=== PATIENT | female | born 1945 | race Caucasian/White ===

== ENCOUNTER 2021-08-01 07:30 | Observation (INO) ==
--- NOTE | 2021-06-02 16:03 | PAT Medication Instructions ---
Medication Instructions Date of Service June 02, 2021 Home Medications acetaminophen 500 mg tablet (Acetaminophen Extra Strength) 1,000 mg PO BID allopurinol 300 mg tablet 300 mg PO QAM atorvastatin 20 mg tablet 20 mg PO QAM baclofen 10 mg tablet 10 mg PO BID PRN calcium citrate 250 mg calcium-vitamin D3 5 mcg (200 unit) tablet 2 tab PO QAM calcium citrate 250 mg calcium-vitamin D3 5 mcg (200 unit) tablet 3 tab PO HS colchicine 0.6 mg tablet 1.2 mg PO UD PRN cyanocobalamin (vitamin B-12) 1,000 mcg/mL injection kit 1,000 mcg IM UD insulin glargine 100 unit/mL subcutaneous solution (Lantus U-100 Insulin) 35 unit SUBCUT HS lisinopril 5 mg tablet 5 mg PO QAM metoprolol succinate 25 mg tablet,extended release 24 hr 25 mg PO QAM pediatric prihzrhe-kaot-tnb (Flintstones Complete (iron)) 1 tab PO BID turmeric root extract 500 mg capsule 1,000 mg PO BID warfarin 7.5 mg tablet 3.75 mg PO 4XWK warfarin 7.5 mg tablet 7.5 mg PO 3XWK artificial tears(hypromellose) 0.3 % eye gel (Systane Gel) 1 drp OPHTHALMIC (EYE) HS PRN latanoprost 0.005 % eye drops 1 drp OPHTHALMIC (EYE) HS ASK your prescriber and surgeon warfarin 7.5 mg tablet 3.75 mg PO 4XWK warfarin 7.5 mg tablet 7.5 mg PO 3XWK STOP taking 2 weeks before surgery (or as soon as possible if surgery is within 2 weeks) turmeric root extract 500 mg capsule 1,000 mg PO BID DO NOT take the morning of surgery baclofen 10 mg tablet 10 mg PO BID PRN calcium citrate 250 mg calcium-vitamin D3 5 mcg (200 unit) tablet 2 tab PO QAM colchicine 0.6 mg tablet 1.2 mg PO UD PRN cyanocobalamin (vitamin B-12) 1,000 mcg/mL injection kit 1,000 mcg IM UD lisinopril 5 mg tablet 5 mg PO QAM pediatric wdvuuvai-geia-jrv (Flintstones Complete (iron)) 1 tab PO BID Take morning of surgery With a small sip of water, OTHERWISE NOTHING TO EAT OR DRINK AFTER MIDNIGHT: acetaminophen 500 mg tablet (Acetaminophen Extra Strength) 1,000 mg PO BID (okay to take up to 4 hours prior to surgery if needed) allopurinol 300 mg tablet 300 mg PO QAM atorvastatin 20 mg tablet 20 mg PO QAM metoprolol succinate 25 mg tablet,extended release 24 hr 25 mg PO QAM Take evening before surgery acetaminophen 500 mg tablet (Acetaminophen Extra Strength) 1,000 mg PO BID baclofen 10 mg tablet 10 mg PO BID PRN (if needed) calcium citrate 250 mg calcium-vitamin D3 5 mcg (200 unit) tablet 3 tab PO HS colchicine 0.6 mg tablet 1.2 mg PO UD PRN (if needed) insulin glargine 100 unit/mL subcutaneous solution (Lantus U-100 Insulin) 35 unit SUBCUT HS pediatric uwrkbqvm-vjru-dxo (Flintstones Complete (iron)) 1 tab PO BID artificial tears(hypromellose) 0.3 % eye gel (Systane Gel) 1 drp OPHTHALMIC (EYE) HS PRN (if needed) latanoprost 0.005 % eye drops 1 drp OPHTHALMIC (EYE) HS Other Notes If you have any questions please call us at [phone] or [phone] or [phone] or [phone]
--- NOTE | 2021-06-04 11:24 | Anesthesiology Consultation ---
Date of Service June 04, 2021 Assessment & Plan (1) Encounter for pre-operative examination: Chart Review Chart Review: Acceptable Risk for Surgery (pending preop Covid testing results ) and Patient seen in Pre Admission Testing Pt on Coumadin- requiring bridging prior to surgery- allergy to Lovenox. Pt is being put on Arixtra- last dose of Coumadin will be 06/15/21- start Arixtra 06/17/21- last dose 06/18/21. Will restart Arixtra 06/21/21 post op. Due to Arixtra being held for <96 hours prior to surgery - patient will need general anesthesia . - Check coags AM DOS - Check BSG AM DOS Per PAT appt on 06/04/21, patient denies any recent travel or large group activities. No known Covid positive contacts or Covid related symptoms. No known Covid infection in the past 90 days. Pt is vaccinated for Covid.. Preop Covid testing scheduled 06/18/21= will await results. Educated on importance of self quarantining, social distancing and wearing mask in public for the patient one week prior to surgery and after Covid testing done Last see by cardio 01/02/21= patient seen for follow-up on per minute atrial fib rillation. Doing well from cardiac standpoint. Patient having trouble ambulating due to knee painseeing orthopedic surgery for possible total knee replacement. From a cardiac standpoint she is doing very well and no further cardiac testing or intervention is necessary at this time. Patient on good medication regiment. "In terms of preop risk assessment she was counseled that I would place her as a moderate risk for any adverse perioperative cardiovascular risk with her risk being approximately less than 5%. She is further counseled that no further cardiac testing or intervention would further lower that risk. She states she understands, she is accepting of the risks and she wishes to proceed. So I see no need to delay from a cardiac standpoint. Obviously her anticoagulation will be managed by [facility]." History Surgery Operation Date: 06/20/21 11:30 Proposed Procedures p Left Total Knee Arthroplasty - Eliseo Lora, DO Height/Weight Height: 5 ft 6 in Weight: 134.1 kg Allergies Allergy/AdvReac Type Severity Reaction Status Date / Time enoxaparin [From Lovenox] Allergy Intermediate Hives Verified 06/02/21 15:32 strawberry AdvReac Mild HIVES WITH Verified 06/02/21 15:32 TOO MANY AT ONE TIME aspirin AdvReac Unknown Gastrointestinal Verified 06/02/21 15:32 Upset NSAIDS (Non-Steroidal AdvReac Unknown GI UPSET Verified 06/02/21 15:32 Anti-Inflamma Medications Home Medications Medication Instructions Recorded Confirmed Last Taken acetaminophen 500 mg tablet 1,000 mg PO BID 09/07/18 06/02/21 09/26/18 (Acetaminophen Extra Strength) allopurinol 300 mg tablet 300 mg PO QAM 09/07/18 06/02/21 09/27/18 atorvastatin 20 mg tablet 20 mg PO QAM 09/07/18 06/02/21 09/27/18 baclofen 10 mg tablet 10 mg PO BID PRN 09/07/18 06/02/21 09/21/18 calcium citrate 250 mg 2 tab PO QAM 09/07/18 06/02/21 09/26/18 calcium-vitamin D3 5 mcg (200 unit) tablet calcium citrate 250 mg 3 tab PO HS 09/07/18 06/02/21 09/26/18 calcium-vitamin D3 5 mcg (200 unit) tablet colchicine 0.6 mg tablet 1.2 mg PO UD PRN 09/07/18 06/02/21 Unknown cyanocobalamin (vitamin B-12) 1,000 mcg IM UD 09/07/18 06/02/21 Unknown 1,000 mcg/mL injection kit insulin glargine 100 unit/mL 35 unit SUBCUT HS 09/07/18 06/02/21 09/26/18 subcutaneous solution (Lantus U-100 Insulin) lisinopril 5 mg tablet 5 mg PO QAM 09/07/18 06/02/21 09/27/18 metoprolol succinate 25 mg 25 mg PO QAM 09/07/18 06/02/21 09/27/18 tablet,extended release 24 hr pediatric cujqnkko-htxt-nvw 1 tab PO BID 09/07/18 06/02/21 09/26/18 (Flintstones Complete (iron)) turmeric root extract 500 mg 1,000 mg PO BID 09/07/18 06/02/21 09/26/18 capsule warfarin 7.5 mg tablet 3.75 mg PO 4XWK 09/07/18 06/02/21 09/26/18 warfarin 7.5 mg tablet 7.5 mg PO 3XWK 09/07/18 06/02/21 09/26/18 artificial tears(hypromellose) 0.3 1 drp OPHTHALMIC (EYE) HS PRN 06/02/21 06/02/21 Unknown % eye gel (Systane Gel) latanoprost 0.005 % eye drops 1 drp OPHTHALMIC (EYE) HS 06/02/21 06/02/21 Unknown Past Medical History Medical History (Updated 06/04/21 @ 15:27 by Jessica Paniagua PA-C) Abdominal hernia Size stable- pain controlled Atrial fibrillation 2016 during the stroke. No problems since. On Coumadin Deep vein thrombosis (~2003) "saddle block" r/t HRT- On Coumadin Degenerative disc disease Diabetes mellitus, type 2 IDDM Glucose uncontrolled in the past - insulin has been adjusted- glucose improving Dyslipidemia GERD (gastroesophageal reflux disease) Small hiatal hernia- minimal symptoms Gout No recent issues Hypertension Migraine Monoclonal gammopathy Follows heme with annually - under observation- stable Osteoarthritis Pulmonary embolism (~2003) "Saddle PE" - on Coumadin SCC (squamous cell carcinoma) S/p removed on right LE Stroke 2016--effected speech, no real deficits now Exercise / Class Metabolic Activity III < 4 Walking/Shop/Light housework (no chest pain or SOB with flat surface, s hort distanced ambulation - uses cane to ambulate- especially in public ) Past Family History Family History Mother Family history of diabetes mellitus Father Family history of diabetes mellitus Brother Family history of diabetes mellitus Sister Family history of diabetes mellitus Other No family history of adverse response to anesthesia Past Surgical History Surgical History History of carpal tunnel release left & right History of cataract surgery bilateral History of colonoscopy History of dilatation and curettage History of Disha-en-Y gastric bypass History of tooth extraction wisdom tooth History of total abdominal hysterectomy and bilateral salpingo-oophorectomy (~1989) History of total right knee replacement (TKR) History of YAG laser capsulotomy of lens of left eye History of YAG laser capsulotomy of lens of right eye Past Anesthesia History No Hx of Anesthesia Complications (with exception to right TKA - SAB took longer to wear off ) and No Family Hx of Anesthesia Complications History of PONV No Hx of PONV and No Hx of Motion Sickness Social History Smoking Status: Never smoker Do You Dip or Chew Tobacco: No Hx Alcohol Use: Yes Alcohol type: wine alcohol intake frequency: holidays/special occasions only Hx Substance Use: No substance use type: does not use Review of Systems Patient denies chest pain, shortness of breath, dyspnea on exertion, cough, wheezing, palpitations. No hx of seizures, MS, apnea/snoring. No hx of blood transfusions Physical Exam Vital Signs VITALS BP 169/82 (usually in 130s systolically per patient) P 79 TEMP 98.2 SP02 98% RESP 16 Constitutional no acute distress ENMT Mouth: no TMJ clicking Thyromental Distance: < 3.5 Finger Breadths (3.0) Mallampati Class: I Caps to molars Neck + limited neck extension (mild ) Respiratory normal respiratory effort; no respiratory distress Auscultation: lungs clear to auscultation bilaterally; no wheezes Cardiovascular Heart Sounds: no murmur Vessels: no carotid bruit Irregularly irregular Musculoskeletal Spine: no pain with cervical ROM Extremities: extremities normal to inspection Psychiatric Orientation: alert Lab Results Anesthesia Preop Results Results Anesthesia Widget: WBC 5.13 K/uL (4.8-10.8) 06/04/21 Hgb 13.7 g/dL (12.0-16.0) 06/04/21 Hct 42.1 % (37-47) 06/04/21 Plt 243 K/uL (130-400) 06/04/21 Na 140 mmol/L (136-145) 06/04/21 K 3.9 mmol/L (3.5-5.1) 06/04/21 Cl 105 mmol/L (98-107) 06/04/21 CO2 28 mmol/L (21-32) 06/04/21 BUN 22 mg/dl (7-18) H 06/04/21 Creat 1.04 mg/dl (0.6-1.2) 06/04/21 Glucose Level 141 mg/dl (70-99) H 06/04/21 PT 15.6 Seconds (9.0-12.0) H 06/04/21 PTT 32.8 Seconds (21.0-31.0) H 06/04/21 INR 1.6 (0.9-1.1) H 06/04/21 HA1c 7.1 % (4.5-5.6) H 06/04/21 Blood Type B Positive 06/04/21 Antibody Screen NEGATIVE 06/04/21 Testing Electrocardiogram Date: 06/04/21 Findings: + AFIB @ (66bpm) and + no change from (April 17, 2016 per cardio ) Chest X-Ray Date: 06/04/21 Findings: + NAD Echocardiogram Date: 01/30/19 EF: 55-59% LV Function: normal Other Findings: + diastolic dysfunction (Grade III ); no LVH LV cavity size is normal. LV wall thickness is normal. Left and right atrium mildly enlarged. RV systolic function is normal. Mild MR. Mild TR.
--- NOTE | 2021-07-31 11:45 | History & Physical Report ---
Date of Service July 31, 2021 Assessment & Plan (1) Osteoarthritis of left knee: We will proceed with a left total knee arthroplasty. Postoperatively she will be started on heparin and Coumadin for DVT prophylaxis. She will be kept overnight in the hospital for postoperative medical management. She plans to use energy physical therapy upon discharge. History of Present Illness Chief Complaint: Osteoarthritis of the left knee. Primary Care Provider: Etta Miller DO Chen is a pleasant 76-year-old female who had a right total knee arthroplasty done by Dr. Roach in 2009. She is done well with that. Unfortunate she has been doing with chronic worsening left knee pain. X-rays and clinical examination been diagnostic for advanced osteoarthritis of the left knee. After failing years of conservative treatment, she has elected proceed with a left total knee arthroplasty. Allergies Allergy/AdvReac Type Severity Reaction Status Date / Time enoxaparin [From Lovenox] Allergy Intermediate Hives Verified 07/30/21 06:37 strawberry AdvReac Mild HIVES WITH Verified 07/30/21 06:37 TOO MANY AT ONE TIME aspirin AdvReac Unknown Gastrointestinal Verified 07/30/21 06:37 Upset NSAIDS (Non-Steroidal AdvReac Unknown GI UPSET Verified 07/30/21 06:37 Anti-Inflamma Home Medications Medication Instructions Recorded Confirmed Type acetaminophen 500 mg tablet 1,000 mg PO BID 09/07/18 07/30/21 History (Acetaminophen Extra Strength) allopurinol 300 mg tablet 300 mg PO QAM 09/07/18 07/30/21 History atorvastatin 20 mg tablet 20 mg PO QAM 09/07/18 07/30/21 History baclofen 10 mg tablet 10 mg PO BID PRN 09/07/18 07/30/21 History calcium citrate 250 mg 2 tab PO QAM 09/07/18 07/30/21 History calcium-vitamin D3 5 mcg (200 unit) tablet calcium citrate 250 mg 3 tab PO HS 09/07/18 07/30/21 History calcium-vitamin D3 5 mcg (200 unit) tablet colchicine 0.6 mg tablet 1.2 mg PO UD PRN 09/07/18 07/30/21 History cyanocobalamin (vitamin B-12) 1,000 mcg IM UD 09/07/18 07/30/21 History 1,000 mcg/mL injection kit insulin glargine 100 unit/mL 35 unit SUBCUT HS 09/07/18 07/30/21 History subcutaneous solution (Lantus U-100 Insulin) lisinopril 5 mg tablet 5 mg PO QAM 09/07/18 07/30/21 History metoprolol succinate 25 mg 25 mg PO QAM 09/07/18 07/30/21 History tablet,extended release 24 hr pediatric tlbfnqut-ffor-pxr 1 tab PO BID 09/07/18 07/30/21 History (Flintstones Complete (iron)) turmeric root extract 500 mg 1,000 mg PO BID 09/07/18 07/30/21 History capsule warfarin 7.5 mg tablet 3.75 mg PO 4XWK 09/07/18 07/30/21 History warfarin 7.5 mg tablet 7.5 mg PO 3XWK 09/07/18 07/30/21 History artificial tears(hypromellose) 0.3 1 drp OPHTHALMIC (EYE) HS PRN 06/02/21 07/30/21 History % eye gel (Systane Gel) latanoprost 0.005 % eye drops 1 drp OPHTHALMIC (EYE) HS 06/02/21 07/30/21 History Past Med/Surg History Medical History Abdominal hernia Size stable- pain controlled Atrial fibrillation 2016 during the stroke. No problems since. On Coumadin Deep vein thrombosis (~2003) "saddle block" r/t HRT- On Coumadin Degenerative disc disease Diabetes mellitus, type 2 IDDM Glucose uncontrolled in the past - insulin has been adjusted- glucose improving Dyslipidemia GERD (gastroesophageal reflux disease) Small hiatal hernia- minimal symptoms Gout No recent issues Hypertension Migraine Monoclonal gammopathy Follows heme with annually - under observation- stable Osteoarthritis Pulmonary embolism (~2003) "Saddle PE" - on Coumadin SCC (squamous cell carcinoma) S/p removed on right LE Stroke 2016--effected speech, no real deficits now Surgical History History of carpal tunnel release left & right History of cataract surgery bilateral History of colonoscopy History of dilatation and curettage History of Disha-en-Y gastric bypass History of tooth extraction wisdom tooth History of total abdominal hysterectomy and bilateral salpingo-oophorectomy (~1989) History of total right knee replacement (TKR) History of YAG laser capsulotomy of lens of left eye History of YAG laser capsulotomy of lens of right eye Family History Mother Family history of diabetes mellitus Father Family history of diabetes mellitus Brother Family history of diabetes mellitus Sister Family history of diabetes mellitus Other No family history of adverse response to anesthesia Social History Smoking Status: Never smoker Second Hand Exposure: No; Hx Alcohol Use: Yes Alcohol type: wine Hx Substance Use: No Preferred Language: B[place]ud[place] Communication Ability: Effective Signals Analyst Required: No Beliefs That Will Affect Care: None Current Living Situation: Alone Feels Safe at Home: Yes Assistive Devices: Cane and Glasses Review of Systems All systems reviewed & are unremarkable except as noted in HPI & below. Physical Exam On physical examination the left knee, she has range of motion from 0 to 115 degrees. She has no instability. She has pain of the distal medial and lateral femoral condyles. She has crepitus with range of motion. Constitutional WD/WN, vitals as above Eyes PERRL, conjunctivae normal, anicteric sclerae ENMT external ear and nose normal, oropharynx normal Neck trachea midline, no thyromegaly Respiratory normal respiratory effort Cardiovascular RRR, no murmur, no edema Gastrointestinal (Abdomen) normal bowel sounds, soft, nontender, no hepatosplenomegaly Psychiatric A+Ox3, euthymic affect Results & Data Results & Data Laboratory Results . Diagnostic Findings X-rays of the left knee show advanced osteoarthritis with joint space narrowing, osteophyte formation, and mdge-ge-ypyu articulation. PG Care Time/CCT Total # of Minutes Spent Total Time Spent with Patient: Total time spent is greater than 50% in coordination of care (as documented) at patient's floor/unit and/or counseling patient: Coding Level of Care Code None Diagnoses Osteoarthritis of left knee M17.12
[~2021-08-01 07:30] MED LIST: ACETAMINOPHEN 500 MG TAB PO SCH; BUPIVACAINE 0.25% 30 ML VIAL ONE; BUPIVACAINE 0.5 % 5 MG/1 ML PF 10ML VIAL ONE; FAMOTIDINE 20 MG TAB PO SCH; GABAPENTIN 300 MG CAP PO SCH; LR 15ML/HR IV SCH; LR 60ML/HR IV SCH; ROPIVACAINE 0.5% HCL/PF 150 MG, BUPIVACAINE 0.75% MPF 20 ML, EPINEPHrine 30MG/30ML (OR ... INSTIL SCH; TRANEXAMIC ACID / 0.7% NACL 1,000 MG/100 ML BAG IV SCH; TRANEXAMIC ACID 1,000 MG **IV Intra-op IV SCH; TRANEXAMIC ACID 1,000 MG **IV Pre-op IV SCH; ceFAZolin 2000MG 2,000 MG/15 ML SYR IV SCH; dexAMETHasone 4 MG TAB PO SCH
[2021-08-01 09:09] LABS: INR 1.2 (0.9-1.1); Partial Thromboplastin Ratio 1.2; Partial Thromboplastin Time 30.3 Seconds (21.0-31.0); Prothrombin Time 12.1 Seconds (9.0-12.0)
--- NOTE | 2021-08-01 09:30 | History & Physical Bridge Note ---
Date of Service August 01, 2021 History & Physical Bridge Note I have examined the patient, reviewed the History & Physical and in the interval since the performance of the History & Physical I have noted the following changes of clinical significance: no changes noted
[2021-08-01] MEDS ORDERED: ONDANSETRON INJ 2 MG/ML 2 ML VIAL IV PRN ×2 (09:55→15:20)
[2021-08-01] MEDS ORDERED: ATROPINE SULFATE 0.1 MG/ML 10ML SYR IV PRN (09:55)
[2021-08-01] MEDS ORDERED: ePHEDrine sulfate 50 MG/ML AMP IV PRN (09:55)
[2021-08-01] MEDS ORDERED: ONDANSETRON INJ 2 MG/ML 2 ML VIAL ONE ×2 (09:57→12:06)
[2021-08-01] MEDS ORDERED: LIDOCAINE 2% 2 ML VIAL/AMP(20MG/ML) INFIL ONE (09:57)
[2021-08-01] MEDS ORDERED: KETAMINE 50 MG/5 ML SYRINGE ONE (09:57)
[2021-08-01] MEDS ORDERED: MIDAZOLAM HCL 1 MG/ML 2ML VIAL ONE (09:57)
[2021-08-01] MEDS ORDERED: PROPOFOL IV EMULSION 10 MG/ML 20 ML VIAL IV ONE (09:57)
[2021-08-01] MEDS ORDERED: ORTHO JOINT ANESTHETIC ONE (10:06)
[2021-08-01] MEDS ORDERED: ROCURONIUM BROMIDE 10 MG/ML 5 ML VIAL IV ONE (10:07)
[2021-08-01] MEDS ORDERED: fentaNYL citrate 100 MCG/2 ML VIAL ONE ×2 (10:07→10:54)
[2021-08-01] MEDS ORDERED: GLYCOPYRROLATE 0.2 MG/ML VIAL ONE (10:07)
[2021-08-01] MEDS ORDERED: NEOSTIGMINE METHYLSULFATE 1 MG/ML 10ML VIAL ONE (10:07)
[2021-08-01] MEDS ORDERED: HYDROmorphone INJ 1 MG/ML SYRINGE IV PRN (10:38)
--- NOTE | 2021-08-01 11:53 | Operative Report ---
PG Post Operative Report Pre & Post Diagnosis Operation Date: 06/20/21 12:25 <No data on this case meets the specified criteria> Operation Date: 08/01/21 10:10 Pre-Op Diagnosis: Degenerative Joint Disease Knee Left Post-Op Diagnosis: Degenerative Joint Disease Knee Left I identified the patient and participated in the time-out.: Yes Procedure Operation Date: 06/20/21 12:25 <No data on this case meets the specified criteria> Operation Date: 08/01/21 10:10 Actual Procedures p Left Total Knee Arthroplasty- Cemented(Left) - Eliseo Lora DO Surgeon Eliseo Lora DO Watch Caser Eliseo Mckee PAC Estimated Blood Loss 20 Findings Consistent with Post-Op Diagnosis Specimens Left femoral and tibial bone Complications none Disposition Disposition: Recovery Room Indications Chen is a pleasant 76-year-old female has been doing with chronic increasing left knee pain. X-rays and clinical examination have been diagnostic for advanced osteoarthritis of the left knee. After failing conservative treatment, she is elected proceed with a left total knee arthroplasty. Description of Procedure Implants used: I used a Abilio Persona total knee arthroplasty system with a size nine PS femur, E tibia with a 30 mm extension stem, 31 oval patella, and a size 12 CPS polyethylene bearing. All components were cemented in place with Biomet cement. Chen arrived [facility] for the above procedure. She was seen in the preoperative holding area and the operative extremity was identified and signed. She was given a preoperative antibiotic, TXA, a spinal anesthetic and an adductor nerve block. She was taken back to the operating room and laid on the table in supine position. She was given basic sedation. The operative knee was then prepped and draped in sterile fashion. A timeout was done, and the patient and the operative extremity was properly identified. A midline incision was made directly over the patella. Dissection was taken down to the extensor mechanism. A subvastus arthrotomy was used. The medial retinaculum was released and the fat pad was mostly excised. The knee was flexed and the ACL, PCL, and meniscus were removed. A drill was sent down the center of the femoral canal followed by an intramedullary fabio. Off that fabio a distal femoral cutting block was placed. 9 mm was resected off the distal femur at 5 of valgus. A posterior referencing AP sizing guide was then placed on the distal femur. The femur measured to be a size nine. 2 drill holes were placed in 3 of external rotation. A 4-in-1 cutting block was then impacted into place. Anterior, posterior, and chamfer cuts were then made. The proximal tibia was then exposed. An external tibial alignment guide was placed. A tibial cut guide was then anchored in place and the proximal tibia was then resected. The posterior aspect of the knee was then opened up and any additional meniscus fragments and osteophytes were removed. The tibia measured to be a size E. The tibial plate was then placed in the appropriate rotation and the tibia was drilled and punched. Trial components were then placed. I used a size 12 CPS polyethylene insert. The knee was brought through a full range of motion and felt to be stable. The peg holes for the femoral component were then drilled. The patella was then everted and 9 mm was resected off the posterior aspect of the patella. The patella measured to be a size 31 oval 3 peg holes were then drilled. A trial patella was placed. The knee was once again brought through a full range of motion and felt to be stable. Trial components were then removed. The surrounding soft tissues were injected with 100 cc of an orthopedic pain control cocktail. All components were then cemented into place with Biomet cement. The final polyethylene insert was then snapped into place. Once cement was dry the tourniquet was deflated. Hemostasis was obtained. A dilute betadyne lavage was then done for 3 minutes. The joint was then irrigated with normal saline solution. The subvastus arthrotomy was then closed with #1 Vicryl suture. The skin was closed with 2-0 Vicryl, 3-0V lock suture, and qing. A soft compressive dressing was placed. She was then transferred to a hospital bed and taken to the postanesthesia care unit in stable condition. She tolerated the procedure well. Eliseo Mckee PA-C, was present for the entire procedure. He was critical for patient positioning, prepping, draping, retraction exposure, wound closure and application of sterile dressing. I attest to the content of the Intraoperative Record and any orders documented therein. Any exceptions are noted below.
[2021-08-01] MEDS ORDERED: LR 15ML/HR IV SCH (12:00)
[2021-08-01] MEDS ORDERED: LABETALOL HCL IV 5 MG/ML 20ML IV ONE (12:06)
[2021-08-01] MEDS: fentaNYL citrate 100 MCG/2 ML VIAL IV PRN ×2 (12:40→12:45)
--- NOTE | 2021-08-01 13:04 | XRay Report ---
XR knee LT 1 or 2V routine CLINICAL HISTORY: Surgical Post Op TECHNIQUE: 3 views of the right knee were obtained. Comparison: None available at the time of this dictation. FINDINGS: Patient is status post total knee arthroplasty with expected postsurgical changes including soft tiss ue swelling, subcutaneous emphysema, and surgical stable placement. No periarticular lucency or hardw are fracture is seen. The alignment is anatomic. No soft tissue abnormality is seen. IMPRESSION: Expected postoperative appearance status post placement of total knee arthroplasty. ACT 112: Negative or not required by law. Electronically signed by: Narayan Rojo M.D. 08/01/2021 1:03 PM
--- NOTE | 2021-08-01 13:57 | Anesthesiology Progress Note ---
Date of Service August 01, 2021 Anesthesia Post Procedure Vital Signs Vital Signs: Temp Pulse Pulse Resp BP Pulse Ox 08/01/21 13:30 80 15 134/92 98 08/01/21 13:15 36 C L 72 17 136/79 100 08/01/21 13:00 76 17 146/85 H 99 08/01/21 12:50 83 13 131/72 97 08/01/21 12:40 75 13 107/77 96 08/01/21 12:30 75 23 128/70 95 08/01/21 12:20 36.7 C 93 H 15 143/74 H 96 08/01/21 09:15 36.7 C 77 18 183/107 H 08/01/21 08:09 36.9 C 100 H 20 192/108 H 95 Pain Intensity Left Knee: Pain Intensity: 3 Transfer of Care Handoff Completed per policy Notes Mental Status: alert / awake / arousable and participated in evaluation Patient Amnestic to Procedure: Yes Nausea / Vomiting: adequately controlled Pain: adequately controlled Airway Patency, RR, SpO2: stable & adequate BP & HR: stable & adequate Hydration State: stable & adequate Anesthetic Complications: no major complications apparent and Pt Satisfied with anesthetic care
[2021-08-01] MEDS ORDERED: bisacodyL 10 MG SUPP PR PRN (15:20)
[2021-08-01] MEDS ORDERED: NALOXONE HCL 0.4 MG/1 ML VIAL/CARP IV PRN (15:20)
[2021-08-01] MEDS ORDERED: COLCHICINE 0.6 MG TAB PO PRN (15:20)
[2021-08-01] MEDS ORDERED: ARTIFICIAL TEARS OP PRN (15:20)
[2021-08-01] MEDS ORDERED: MAGNESIUM HYDROXIDE SUSP 30 ML UDC PO PRN (15:20)
[2021-08-01] MEDS ORDERED: HYDROmorphone INJ 0.5 MG/0.5 ML SYR IV PRN (15:20)
[2021-08-01] MEDS ORDERED: PHARMACY GLYCEMIC MGMT CONSULT PRN (15:20)
[2021-08-01] MEDS ORDERED: METOCLOPRAMIDE HCL INJ 5 MG/ML 2 ML VIAL IV PRN (15:20)
[2021-08-01] MEDS ORDERED: ORTHO WARFARIN NOMOGRAM SCH (15:30)
[2021-08-01] MEDS: KETOROLAC TROMETHAMINE 15 MG/ML VIAL IV SCH ×2 (16:03→20:59)
[2021-08-01] MEDS: SODIUM CHLORIDE 0.9% 1000ML 1,000 ML IV SCH (16:10)
[2021-08-01] MEDS: ACETAMINOPHEN 500 MG TAB PO SCH (16:11)
[2021-08-01] MEDS ORDERED: WARFARIN SOD 7.5 MG TAB PO ONE (16:30)
[2021-08-01] MEDS: INSULIN ASPART 100 UNITS/ML 3 ML PEN SC SCH ×2 (17:06→21:00)
[2021-08-01] MEDS: ceFAZolin 2000MG 2,000 MG/15 ML SYR IV SCH (18:10)
[2021-08-01] MEDS: DOCUSATE SODIUM 100 MG CAP PO SCH (20:59)
[2021-08-01] MEDS ORDERED: SENNA 8.6 MG TAB PO SCH (21:00)
[2021-08-01] MEDS ORDERED: INSULIN GLARGINE SOLOSTAR 100 UNITS/ML 3 ML PEN SC SCH ×2 (21:00)
[2021-08-01] MEDS: oxyCODONE HCL IR 5 MG TAB (IMMEDIATE RELEASE) PO PRN (21:19)
[2021-08-02] MEDS: KETOROLAC TROMETHAMINE 15 MG/ML VIAL IV SCH ×2 (02:07→08:48)
[2021-08-02] MEDS: ceFAZolin 2000MG 2,000 MG/15 ML SYR IV SCH (02:07)
[2021-08-02] MEDS: ACETAMINOPHEN 500 MG TAB PO SCH ×2 (02:09→08:40)
[2021-08-02] MEDS: SODIUM CHLORIDE 0.9% 1000ML 1,000 ML IV SCH (02:16)
[2021-08-02 06:30] LABS: Hematocrit (blood only) 36.5 % (37-47); Mean Corpuscular Hemoglobin 31.1 pg (25-34); Mean Corpuscular Hgb Conc 32.9 g/dL (32-36); Mean Corpuscular Volume 94.6 fL (80-100); Mean Platelet Volume 10.1 fL (7.4-10.4); Platelet Count 225 K/uL (130-400); RDW Coefficient of Variation 13.4 % (11.5-14.5); RDW Standard Deviation 46.2 fL (36.4-46.3); Red Blood Count 3.86 M/uL (4.2-5.4); White Blood Count 15.05 K/uL (4.8-10.8)
[2021-08-02 06:39] LABS: INR 1.2 (0.9-1.1); Prothrombin Time 11.9 Seconds (9.0-12.0)
[2021-08-02 07:02] LABS: BUN Creatinine Ratio 16.2 (10-20); Calcium 9.1 mg/dl (8.5-10.1); Creatinine Clr Calc Pharmacy 41.7 ml/min; Est GFR (African American) 35.6 ml/min; Est GFR (Non-African American) 30.7 ml/min; Potassium 4.3 mmol/L (3.5-5.1)
--- NOTE | 2021-08-02 07:33 | Orthopedic Progress Note ---
Date of Service August 02, 2021 Assessment & Plan (1) Status post left knee replacement: Overall she is doing very well. She denies any much pain in the left knee. She will be seen by physical therapy today for ambulation and range of motion exercises. Her dressing can be changed after physical therapy. She can be discharged home later today. She can start her Arixtra later tonight. She will continue on the Coumadin. She will then follow-up with orthopedics in 2 weeks. Quan Siddiqui was seen and examined at bedside this morning. Overall she is doing very well. She is not having much pain in the left knee. She has been up and ambulating to the bathroom. She has no complaints. Review of Systems All systems reviewed & are unremarkable except as noted in HPI & below. Physical Exam On physical examination of the left knee, the dressing is clean and dry. Her leg is out in full extension. She has active dorsiflexion plantarflexion of her left ankle. She is able to do a straight leg raise. Results & Data Results & Data Laboratory Results . Diagnostic Findings Postoperative x-rays of the left knee show the prosthesis to be in anatomic alignment without any evidence of fracture, desiccation, or loosening. PG Care Time/CCT Total # of Minutes Spent Total Time Spent with Patient: Total time spent is greater than 50% in coordination of care (as documented) at patient's floor/unit and/or counseling patient: Coding Level of Care Code 16110 Post Operative Follow-Up Diagnoses Status post left knee replacement Z96.652
--- NOTE | 2021-08-02 07:35 | Discharge Summary ---
Date of Service August 02, 2021 Admission HPI (Per Admitting) Chen is a pleasant 76-year-old female who had a right total knee arthroplasty done by Dr. Roach in 2009. She is done well with that. Unfortunate she has been doing with chronic worsening left knee pain. X-rays and clinical examination been diagnostic for advanced osteoarthritis of the left knee. After failing years of conservative treatment, she has elected proceed with a left total knee arthroplasty. Admission Exam (Per Admitting) On physical examination the left knee, she has range of motion from 0 to 115 degrees. She has no instability. She has pain of the distal medial and lateral femoral condyles. She has crepitus with range of motion. Principal Diagnosis Same as "Discharge Diagnosis" noted below under Discharge Instructions. Discharge Exam On physical examination of the left knee, the dressing is clean and dry. Her leg is out in full extension. She has active dorsiflexion plantarflexion of her left ankle. She is able to do a straight leg raise. Discharge Data Procedures Performed Operation Date: 06/20/21 12:25 <No data on this case meets the specified criteria> Operation Date: 08/01/21 10:10 Actual Procedures p Left Total Knee Arthroplasty- Cemented(Left) - Eliseo Lora DO Ordered Studies 06/20/21 05:00 US - OR guided needle placemen Routine 08/01/21 05:00 US - OR guided needle placemen Routine Hospital Course (1) Status post left knee replacement: On August 01, 2021 Chen arrived at [facility] and underwent a left knee replacement without complication. She had a general anesthetic. Postoperatively she was started on Coumadin and Arixtra for DVT prophylaxis and transferred to the general orthopedic floors. Her hospital course was uneventful. On postop day #1 her vital signs were stable and her pain was well controlled. She was able to participate well with physical therapy doing ambulation and range of motion exercises. She was then discharged to home. She will follow-up with orthopedics in 2 weeks. PG Care Time/CCT Total # of Minutes Spent Total Time Spent with Patient: Total time spent is greater than 50% in coordination of care (as documented) at patient's floor/unit and/or counseling patient: Discharge Plan Discharge Items Patient Disposition: Home - Home Health Services Reason For Visit: Degenerative Joint Disease Knee Left Discharge Diagnosis: Left knee replacement Activity: As commented below Non-emergency contact: Surgeon Call non-emergency contact if: your wound has increased redness and your wound has increased drainage Follow-up/Referrals: Etta Miller, [Primary Care Provider] - Diet: Regular Addtl Attending Provider Instructions: Activity and Therapy Recommendations: * If you are using [facility] then therapy will be provided at your home until they feel you have accomplished all of your goals. * If you are using [facility] then Physical Therapy will be provided until they feel you are ready to start Outpatient Physical Therapy. * If you are not using home therapy then Outpatient Physical Therapy should start about 3-5 days from your day of surgery. Therapy will last about 6-10 weeks * It is important not to put a pillow under your knee when you are relaxing or sleeping. It is just as important to make sure you are getting your knee perf ectly straight as it is to regain your knee bend. * You were shown a series of exercises in the hospital. Do these exercises three times each day including the exercises you were shown in physical therapy. * Get up and walk several times each day. For the first four weeks, try not to stand or walk for more than one hour at a time. If you do stand or walk for more than one hour, you will not hurt anything, but your leg will likely swell. * As you feel comfortable, you may change from the walker or crutches to a cane and then to independent walking. Medications: * Narcotic You will likely be sent home from the hospital with a prescription for the narcotic pain medication that worked best throughout your stay. * Aspirin Most patients will be required to take Aspirin 81mg twice a day for 6 weeks after surgery. This is obtained [id number] and a prescription is not necessary. * Other medications may be prescribed for specific circumstances. If you have a ny questions, please call the office at . * Resume previous home medications unless otherwise instructed TEDs/Elastic Stockings: The white elastic stockings help limit swelling and prevent blood clots from forming in your legs.~ The more you wear them, the more they work. Wear them for six weeks. Dressing Care: The dressing can be changed after physical therapy on postop day #1. Daily dry dressing changes for a few days, especially if the incision is still draining some. If the incision is not draining then you may leave the qing open to air. If there is a little bit of drainage or if the qing are getting stuck on your clothing then cover the incision with a dry dressing. The qing will be removed at your 2 week follow-up appointment. Showering: You may shower 5 days from the day of surgery as long as the incision is no longer draining. You may shower with the qing exposed. Let soapy water run over the qing and pat them dry. Do not scrub or soak the incision. Things To Watch For: * Drainage from the incision site that occurs more than one week after your surgery. * Increased redness at the incision site. * Fever above 102 degrees Fahrenheit. * Unusual chest pain or shortness of breath. * Call [facility] at with any of the above problems Follow-Up Visit: Follow-up with Dr. Lora's PA (Eliseo Mceke) 2-3 weeks after your day of surgery. He will remove your qing and answer any questions. If you have any additional questions or concerns, Dr Lora is usually in the office at the same time and will be available An appointment was probably scheduled when you signed-up for surgery in the office. If you have any questions call Office Instructions: More detailed instructions as well as Frequently Asked Questions were provided in a folder by our office when you signed-up for surgery. Please review these instructions when you get home. If you have any further questions or concerns, please feel free to call the office at [phone] Pending Studies at Discharge: No Stand-Alone Forms: [facility], Sm[facility] C[facility] Medications and DC Order Prescriptions: New oxycodone-acetaminophen 5-325 mg tablet 1 tab PO Q6H PRN (Reason: pain) Qty: 30 RF: 0 Continued lisinopril 5 mg Tablet 5 mg PO QAM RF: 0 atorvastatin 20 mg Tablet 20 mg PO QAM RF: 0 Lantus U-100 Insulin 100 unit/mL Solution 35 unit SUBCUT HS RF: 0 warfarin 7.5 mg Tablet 7.5 mg PO 3XWK RF: 0 warfarin 7.5 mg Tablet 3.75 mg PO 4XWK RF: 0 Flintstones Complete (iron) Tablet,Chewable 1 tab PO BID RF: 0 acetaminophen [Acetaminophen Extra Strength] 500 mg Tablet 1,000 mg PO BID RF: 0 baclofen 10 mg Tablet 10 mg PO BID PRN (Reason: Muscle Spasm) RF: 0 allopurinol 300 mg Tablet 300 mg PO QAM RF: 0 metoprolol succinate 25 mg Tablet Extended Release 24 Hr 25 mg PO QAM RF: 0 colchicine [Colcrys] 0.6 mg Tablet 1.2 mg PO UD PRN (Reason: gout) RF: 0 calcium citrate-vitamin D3 250 mg calcium- 200 unit Tablet 3 tab PO HS RF: 0 calcium citrate-vitamin D3 250 mg calcium- 200 unit Tablet 2 tab PO QAM RF: 0 turmeric root extract 500 mg Capsule 1,000 mg PO BID RF: 0 cyanocobalamin (vitamin B-12) 1,000 mcg/mL Kit 1,000 mcg IM UD RF: 0 latanoprost [Xalatan] 0.005 % Drops 1 drp OPHTHALMIC (EYE) HS RF: 0 Systane Gel 0.3 % Gel 1 drp OPHTHALMIC (EYE) HS PRN (Reason: Dry Eye(S)) RF: 0 Discharge Orders: Discharge Order (Routine); Ordered 08/02/21 Ordered By: Eliseo Lora Admission Data Admit Date/Time: 08/01/21 12:26 Attending Provider: Eliseo Lora Admit Provider: Eliseo Lora Primary Care Provider: Etta Miller
[2021-08-02] MEDS: DOCUSATE SODIUM 100 MG CAP PO SCH (07:51)
[2021-08-02] MEDS: oxyCODONE HCL IR 5 MG TAB (IMMEDIATE RELEASE) PO PRN (08:39)
[2021-08-02] MEDS: INSULIN ASPART 100 UNITS/ML 3 ML PEN SC SCH ×2 (08:42→13:09)
[2021-08-02] MEDS ORDERED: ATORVASTATIN 20 MG TAB PO SCH (09:00)
[2021-08-02] MEDS ORDERED: lisinopril 5 MG TAB PO SCH (09:00)
[2021-08-02] MEDS ORDERED: FONDAPARINUX 2.5 MG/0.5 ML SYR SQ SCH (09:00)
[2021-08-02] MEDS ORDERED: METOPROLOL SUCC 25MG EXT REL TAB PO SCH (09:00)
[2021-08-02] MEDS ORDERED: MULTIVITAMIN TAB PO SCH (09:00)
[2021-08-02] MEDS ORDERED: allopurinoL 300 MG TAB PO SCH (09:00)
== END 2021-08-02 14:52 | disposition home health service (06) ==
LOC: PACUINP 07:30 → ASU 07:30 → 3E 15:18